=== PATIENT | male | born 1970 | race Caucasian/White ===

== ENCOUNTER 2017-03-06 13:36 | Emergency (ER) | payer OTHER ==
[~2017-03-06] VITALS: Ht 170.2 cm; Wt 72.6 kg
[2017-03-06] MEDS ORDERED: CLEOCIN HCL150 MG PO (15:26)
[2017-03-06] MEDS ORDERED: IBUPROFEN 600600 M1 PO (15:26)
== END 2017-03-06 16:02 | disposition home or self-care (01) ==
LOC: ER 13:36
DX: L03.012 Cellulitis of left finger (principal); F84.0 Autistic disorder